=== PATIENT | male | born 1990 | race Caucasian/White ===

== ENCOUNTER 2016-11-11 08:09 | Emergency (ER) | payer OTHER ==
[~2016-11-11] VITALS: Ht 182.9 cm; Wt 73.0 kg
[~2016-11-11 08:09] MED LIST: AVILIFY PO; BUPR-43; FAMO-38; TRAM50TA3
[2016-11-11] MEDS ORDERED: MORPHINE SULFATE 4 MG/ML CPJ (NOT FOR IM USE) IV STA (09:04)
[2016-11-11] MEDS ORDERED: SODIUM CHLORIDE 0.9% 1,000 ML IV ONE (09:04)
[2016-11-11] MEDS ORDERED: TETANUS, DIPHTHERIA, PERTUSSIS VAC/PF 0.5ML (>7YR OLD) IM ONE (09:15)
[2016-11-11] MEDS ORDERED: BACITRACIN ZINC OINT UDPKT TOP ONE (09:15)
[2016-11-11 09:39] LABS: BASOPHILS % 0.4 % (0.0-2.0); EOSINOPHILS % 0.4 % (0.0-5.0); HEMATOCRIT. 45.1 % (42.0-52.0); HEMOGLOBIN. 15.5 g/dL (14.0-18.0); LYMPHOCYTES % 10.7 % (20.0-50.0); MEAN CORPUSCULAR HEMOGLOBIN 28.9 pg (28.0-32.0); MEAN CORPUSCULAR HGB CONC 34.4 g/dL (31.0-37.0); MEAN PLATELET VOLUME 9.4 fl (7.4-10.4); MONOCYTES % 8.8 % (2.0-8.0); NEUTROPHILS % 79.7 % (40.0-76.0); PLATELET 234 x1000/uL (130-400); RED BLOOD CELL COUNT 5.37 mill/uL (4.7-6.1); RED CELL DISTRIBUTION WIDTH 13.5 % (11.6-14.6); WHITE BLOOD COUNT 14.7 x1000/uL (4.5-11.0)
[2016-11-11 09:46] LABS: PROTHROMBIN TIME 10.9 sec
[2016-11-11 09:52] LABS: ALANINE AMINOTRANSFERASE 37 IU/L (13-61); ANION GAP 10; CALCIUM 8.8 mg/dL (8.5-10.1); CARBON DIOXIDE 30 mEq/L (21-32); CHLORIDE 105 mEq/L (98-107); ETHANOL BLOOD < 10 mg/dL; INDEX HEMOLYSI 1 (1-3); INDEX ICTERIC 1 (1-4); INDEX LIPEMIC 1 (1-3); UREA NITROGEN BLOOD 14 mg/dL (7-21); eGFR > 60 mL/min (>60)
[2016-11-11 10:00] VITALS: BP 102/67
== END 2016-11-11 12:52 | disposition home or self-care (01) ==
LOC: ER 08:50
DX: S00.03XA Contusion of scalp, initial encounter (principal); S70.02XA Contusion of left hip, initial encounter; S80.11XA Contusion of right lower leg, initial encounter; F12.10 Cannabis abuse, uncomplicated; V09.9XXA Pedestrian injured in unspecified transport accident, initial encounter; Y93.01 Activity, walking, marching and hiking; Y99.8 Other external cause status; Y92.410 Unspecified street and highway as the place of occurrence of the external cause
CPT/HCPCS: 36415; 70450; 71260; 72125; 73590; 74177; 80053; 85025; 85610; 86850; 86900; 86901; 90471; 90715; 96361; 96374; 99285; G0482; J2270; J7030; Z7610

== ENCOUNTER 2016-12-10 19:44 | Emergency (ER) | payer OTHER | END 2016-12-10 20:27 | disposition left against medical advice (07) | LOC: ER 19:44 | DX: Z53.21 Procedure and treatment not carried out due to patient leaving prior to being seen by health care provider (principal) ==

== ENCOUNTER 2019-02-28 09:26 | Emergency (ER) | payer MEDICARE, MEDICAID ==
[~2019-02-28] VITALS: Ht 188 cm; Wt 77.0 kg
[2019-02-28 10:47] VITALS: BP 118/75
== END 2019-02-28 10:47 | disposition home or self-care (01) ==
LOC: ER 09:26
DX: Z48.02 Encounter for removal of sutures (principal)
CPT/HCPCS: 99281

== ENCOUNTER 2019-06-14 18:31 | Emergency (ER) | payer MEDICARE, MEDICAID ==
[~2019-06-14] VITALS: Ht 182.9 cm; Wt 78.0 kg
[2019-06-14 19:30] VITALS: BP 141/62
== END 2019-06-14 19:58 | disposition home or self-care (01) ==
LOC: ER 18:31
DX: F98.9 Unspecified behavioral and emotional disorders with onset usually occurring in childhood and adolescence (principal); F41.9 Anxiety disorder, unspecified; F12.10 Cannabis abuse, uncomplicated; Z79.899 Other long term (current) drug therapy
CPT/HCPCS: 99283; 99284

== ENCOUNTER 2019-07-27 12:02 | Emergency (ER) | payer MEDICARE, MEDICAID ==
[~2019-07-27] VITALS: Ht 175.3 cm; Wt 60.0 kg
[2019-07-27 14:34] VITALS: BP 120/72
== END 2019-07-27 14:35 | disposition home or self-care (01) ==
LOC: ER 12:02
DX: S62.114A Nondisplaced fracture of triquetrum [cuneiform] bone, right wrist, initial encounter for closed fracture (principal); S60.511A Abrasion of right hand, initial encounter; L03.113 Cellulitis of right upper limb; F12.10 Cannabis abuse, uncomplicated; F17.210 Nicotine dependence, cigarettes, uncomplicated; Y04.0XXA Assault by unarmed brawl or fight, initial encounter; W22.09XA Striking against other stationary object, initial encounter; Y93.89 Activity, other specified; Y92.89 Other specified places as the place of occurrence of the external cause
CPT/HCPCS: 29125; 73130; 99283

== ENCOUNTER 2019-08-22 07:25 | Emergency (ER) | payer MEDICARE, MEDICAID ==
[~2019-08-22] VITALS: Ht 177.8 cm; Wt 70.0 kg
[2019-08-22 07:37] VITALS: BP 169/87
== END 2019-08-22 11:00 | disposition home or self-care (01) ==
LOC: ER 07:25
DX: Z48.00 Encounter for change or removal of nonsurgical wound dressing (principal)
CPT/HCPCS: 99281

== ENCOUNTER 2019-08-24 08:26 | Emergency (ER) | payer MEDICARE, MEDICAID ==
[~2019-08-24] VITALS: Ht 188 cm; Wt 84.0 kg
[2019-08-24 08:35] VITALS: BP 124/75
== END 2019-08-24 09:14 | disposition home or self-care (01) ==
LOC: ER 08:26
DX: Z48.00 Encounter for change or removal of nonsurgical wound dressing (principal)
CPT/HCPCS: 99283

== ENCOUNTER 2019-08-30 07:19 | Emergency (ER) | payer MEDICARE, MEDICAID ==
[~2019-08-30] VITALS: Ht 188 cm; Wt 68.0 kg
[2019-08-30 07:55] VITALS: BP 121/78
== END 2019-08-30 08:43 | disposition home or self-care (01) ==
LOC: ER 07:19
DX: Z48.00 Encounter for change or removal of nonsurgical wound dressing (principal); F32.9 Major depressive disorder, single episode, unspecified; F41.9 Anxiety disorder, unspecified; F12.10 Cannabis abuse, uncomplicated
CPT/HCPCS: 99281

== ENCOUNTER 2019-10-22 19:17 | Emergency (ER) | payer MEDICARE, MEDICAID ==
[~2019-10-22] VITALS: Ht 182.9 cm; Wt 82.0 kg
[2019-10-22 19:26] VITALS: BP 143/90
== END 2019-10-22 20:15 | disposition left against medical advice (07) ==
LOC: ER 19:17
DX: F10.10 Alcohol abuse, uncomplicated (principal); F12.10 Cannabis abuse, uncomplicated; Y90.9 Presence of alcohol in blood, level not specified
CPT/HCPCS: 99283

== ENCOUNTER 2019-12-23 23:41 | Emergency (ER) | payer MEDICARE, OTHER ==
[~2019-12-23] VITALS: Ht 180.3 cm; Wt 84.0 kg
[2019-12-23 23:58] VITALS: BP 124/79
== END 2019-12-24 01:02 | disposition home or self-care (01) ==
LOC: ER 23:41
DX: F10.229 Alcohol dependence with intoxication, unspecified (principal); F91.8 Other conduct disorders; F12.10 Cannabis abuse, uncomplicated; Y90.9 Presence of alcohol in blood, level not specified
CPT/HCPCS: 99281; 99283

== ENCOUNTER 2020-06-15 15:19 | Emergency (ER) | payer MEDICARE, OTHER ==
[~2020-06-15] VITALS: Ht 177.8 cm; Wt 80.0 kg
[2020-06-15 15:30] VITALS: BP 135/85
[2020-06-15 19:10] LABS: BASOPHILS % 0.7 % (0.0-2.0); EOSINOPHILS % 0.7 % (0.0-5.0); HEMATOCRIT. 53.2 % (42.0-52.0); HEMOGLOBIN. 18.3 g/dL (14.0-18.0); LYMPHOCYTES % 21.5 % (20.0-50.0); MEAN CORPUSCULAR HEMOGLOBIN 30.4 pg (28.0-32.0); MEAN CORPUSCULAR VOLUME 88.4 fL (80.0-94.0); MONOCYTES % 5.5 % (2.0-8.0); NEUTROPHILS % 71.6 % (40.0-76.0); PLATELET 269 x1000/uL (130-400); RED BLOOD CELL COUNT 6.02 mill/uL (4.7-6.1); RED CELL DISTRIBUTION WIDTH 14.3 % (11.6-14.6)
[2020-06-15 19:24] LABS: CHLORIDE 105 mEq/L (98-107)
[2020-06-15 19:36] LABS: ETHANOL BLOOD 111 mg/dL
[2020-06-15 20:14] LABS: CLARITY URINE CLEAR (CLEAR); COLOR URINE DARK YELLOW (YELLOW); KETONES URINE NEGATIVE (NEGATIVE); LEUKOCYTE ESTERASE URINE 2+ (NEGATIVE); NITRITE URINE NEGATIVE (NEGATIVE); OCCULT BLOOD URINE NEGATIVE (NEGATIVE); PH URINE 7.5 (4.5-8.0); PROTEIN URINE TRACE (NEGATIVE); SPECIFIC GRAVITY URINE 1.022 (1.005-1.030)
[2020-06-15 20:30] LABS: *AMPHETAMINES SCREEN URINE NEGATIVE (NEGATIVE); *BARBITURATES SCREEN URINE NEGATIVE (NEGATIVE); *BENZODIAZEPINES SCREEN URINE NEGATIVE (NEGATIVE)
[2020-06-15 20:31] LABS: CANNABINOID URINE SCREEN PRESUMTIVE POSITIVE (NEGATIVE); METHADONE URINE SCREEN NEGATIVE (NEGATIVE); OPIATES URINE SCREEN NEGATIVE (NEGATIVE); PHENCYCLIDINE URINE SCREEN NEGATIVE (NEGATIVE)
[2020-06-15 20:40] LABS: *COCAINE SCREEN URINE NEGATIVE (NEGATIVE)
== END 2020-06-15 22:13 | disposition home or self-care (01) ==
LOC: ER 15:28
DX: R45.1 Restlessness and agitation (principal); F17.200 Nicotine dependence, unspecified, uncomplicated; F12.10 Cannabis abuse, uncomplicated
CPT/HCPCS: 36415; 71045; 80053; 80305; 80307; 80320; 81003; 83880; 84484; 85025; 99284; G0480

== ENCOUNTER 2020-08-13 03:10 | Emergency (ER) | payer MEDICARE, MEDICAID ==
[~2020-08-13] VITALS: Ht 182.9 cm; Wt 73.0 kg
[~2020-08-13 03:10] MED LIST changes: -BUPR-43; +[UNRECOGNIZED DRUG - CODE]
[2020-08-13 03:23] VITALS: BP 130/70
[2020-08-13] MEDS ORDERED: SODIUM CHLORIDE 0.9% 1,000 ML IV ONE (04:00)
[2020-08-13 05:05] LABS: BASOPHILS % 0.8 % (0.0-2.0); EOSINOPHILS % 1.6 % (0.0-5.0); HEMATOCRIT. 51.5 % (42.0-52.0); HEMOGLOBIN. 17.4 g/dL (14.0-18.0); LYMPHOCYTES % 30.7 % (20.0-50.0); MEAN CORPUSCULAR HEMOGLOBIN 30.5 pg (28.0-32.0); MEAN CORPUSCULAR VOLUME 90.4 fL (80.0-94.0); MEAN PLATELET VOLUME 9.3 fl (7.4-10.4); MONOCYTES % 6.3 % (2.0-8.0); NEUTROPHILS % 60.6 % (40.0-76.0); PLATELET 276 x1000/uL (130-400); RED CELL DISTRIBUTION WIDTH 13.3 % (11.6-14.6)
[2020-08-13 05:09] LABS: CHLORIDE 109 mEq/L (98-107)
[2020-08-13 05:13] LABS: *AMPHETAMINES SCREEN URINE NEGATIVE (NEGATIVE); *BARBITURATES SCREEN URINE NEGATIVE (NEGATIVE); *BENZODIAZEPINES SCREEN URINE NEGATIVE (NEGATIVE); *COCAINE SCREEN URINE NEGATIVE (NEGATIVE); METHADONE URINE SCREEN NEGATIVE (NEGATIVE); OPIATES URINE SCREEN NEGATIVE (NEGATIVE)
[2020-08-13 05:13] LABS: ETHANOL BLOOD 220 mg/dL
[2020-08-13 05:14] LABS: CANNABINOID URINE SCREEN PRESUMTIVE POSITIVE (NEGATIVE); PHENCYCLIDINE URINE SCREEN NEGATIVE (NEGATIVE)
== END 2020-08-13 06:49 | disposition home or self-care (01) ==
LOC: ER 03:10
DX: F10.229 Alcohol dependence with intoxication, unspecified (principal); Y90.7 Blood alcohol level of 200-239 mg/100 ml; R03.0 Elevated blood-pressure reading, without diagnosis of hypertension; F12.90 Cannabis use, unspecified, uncomplicated; S00.511A Abrasion of lip, initial encounter; S60.519A Abrasion of unspecified hand, initial encounter; Y04.0XXA Assault by unarmed brawl or fight, initial encounter; Y93.89 Activity, other specified; Y92.480 Sidewalk as the place of occurrence of the external cause
CPT/HCPCS: 36415; 80048; 80305; 80320; 85025; 99283; J7030; G0480

== ENCOUNTER 2021-09-26 23:12 | Emergency (ER) | payer MEDICARE, MEDICAID ==
[~2021-09-26] VITALS: Ht 185.4 cm; Wt 77.0 kg
[~2021-09-26 23:12] MED LIST changes: +BUPR-46; -[UNRECOGNIZED DRUG - CODE]
[2021-09-26] MEDS ORDERED: TETANUS, DIPHTHERIA, PERTUSSIS VAC/PF 0.5ML (>10YR OLD) IM ONE (23:45)
[2021-09-27] MEDS ORDERED: LIDOCAINE HCL/PF 1% 10 MG/ML 5ML VIAL INFIL ONE (00:15)
[2021-09-27] MEDS ORDERED: LIDOCAINE HCL 1% 20ML VIAL (Pyxis) INJ INFIL SCH (00:30)
[2021-09-27] MEDS ORDERED: MORPHINE SULFATE 4 MG/ML CPJ (NOT FOR IM USE) IV ONE (01:15)
[2021-09-27] MEDS ORDERED: ONDANSETRON HCL 4MG/2ML INJ IV ONE (01:15)
[2021-09-27 07:00] VITALS: BP 110/80
== END 2021-09-27 07:10 | disposition home or self-care (01) ==
LOC: ER 23:12
DX: S61.411A Laceration without foreign body of right hand, initial encounter (principal); S00.31XA Abrasion of nose, initial encounter; F12.10 Cannabis abuse, uncomplicated; R51.9 Headache, unspecified; Y08.89XA Assault by other specified means, initial encounter; Y93.89 Activity, other specified; Y92.89 Other specified places as the place of occurrence of the external cause; Y99.8 Other external cause status; F10.229 Alcohol dependence with intoxication, unspecified; Y90.0 Blood alcohol level of less than 20 mg/100 ml
CPT/HCPCS: 12002; 36415; 70450; 73130; 86850; 86900; 86901; 86920; 90471; 90715; 96374; 96375; 99291; J2270; J2405; J3490; 99285; P9016

== ENCOUNTER 2021-10-04 13:24 | Emergency (ER) | payer MEDICARE, MEDICAID ==
[~2021-10-04] VITALS: Ht 182.9 cm; Wt 77.0 kg
[2021-10-04] MEDS ORDERED: CEPH500C2 MT (15:39)
[2021-10-04] MEDS ORDERED: CEPHALEXIN 250MG CAPSULE PO ONE (15:45)
[2021-10-04] MEDS ORDERED: BACITRACIN ZINC OINT UDPKT TOP ONE (15:45)
[2021-10-04 16:09] VITALS: BP 119/77
== END 2021-10-04 16:11 | disposition home or self-care (01) ==
LOC: ER 13:24
DX: S61.411D Laceration without foreign body of right hand, subsequent encounter (principal); Z13.9 Encounter for screening, unspecified; X58.XXXD Exposure to other specified factors, subsequent encounter
CPT/HCPCS: 99282

== ENCOUNTER 2021-10-10 14:47 | Emergency (ER) | payer MEDICARE, MEDICAID ==
[~2021-10-10] VITALS: Ht 188 cm; Wt 77.0 kg
[~2021-10-10 14:47] MED LIST changes: +CEPH500C2 MT
[2021-10-10 15:18] VITALS: BP 117/72
[2021-10-10] MEDS ORDERED: CEPH500C2 MT (16:32)
== END 2021-10-10 16:51 | disposition home or self-care (01) ==
LOC: ER 15:00
DX: T81.30XA Disruption of wound, unspecified, initial encounter (principal); Z48.02 Encounter for removal of sutures; R94.31 Abnormal electrocardiogram [ECG] [EKG]; F12.10 Cannabis abuse, uncomplicated; Z86.19 Personal history of other infectious and parasitic diseases; F10.21 Alcohol dependence, in remission; Y83.8 Other surgical procedures as the cause of abnormal reaction of the patient, or of later complication, without mention of misadventure at the time of the procedure; Y92.018 Other place in single-family (private) house as the place of occurrence of the external cause
CPT/HCPCS: 93005; 99283

== ENCOUNTER 2021-10-14 15:16 | Emergency (ER) | payer MEDICARE, MEDICAID ==
[~2021-10-14] VITALS: Ht 188 cm; Wt 77.0 kg
[2021-10-14 15:21] VITALS: BP 132/76
== END 2021-10-14 15:56 | disposition home or self-care (01) ==
LOC: ER 15:16
DX: Z48.00 Encounter for change or removal of nonsurgical wound dressing (principal); Z48.02 Encounter for removal of sutures
CPT/HCPCS: 99281

== ENCOUNTER 2021-10-18 11:26 | Emergency (ER) | payer MEDICARE, MEDICAID ==
[~2021-10-18] VITALS: Ht 188 cm; Wt 77.0 kg
[2021-10-18 11:30] VITALS: BP 121/89
== END 2021-10-18 11:44 | disposition home or self-care (01) ==
LOC: ER 11:26
DX: Z48.02 Encounter for removal of sutures (principal); F12.10 Cannabis abuse, uncomplicated; Z98.890 Other specified postprocedural states
CPT/HCPCS: 99281

== ENCOUNTER 2022-05-06 16:02 | Emergency (ER) | payer MEDICARE, MEDICAID ==
[~2022-05-06] VITALS: Ht 167.6 cm; Wt 76.0 kg
[2022-05-06 16:09] VITALS: BP 149/86
== END 2022-05-06 16:51 | disposition left against medical advice (07) ==
LOC: ER 16:02
DX: Z53.21 Procedure and treatment not carried out due to patient leaving prior to being seen by health care provider (principal)

== ENCOUNTER 2022-11-01 15:59 | Emergency (ER) | payer MEDICARE, MEDICAID ==
[~2022-11-01] VITALS: Ht 182.9 cm; Wt 80.0 kg
[2022-11-01 16:03] VITALS: BP 151/84
== END 2022-11-01 16:15 | disposition left against medical advice (07) ==
LOC: ER 15:59
DX: Z53.21 Procedure and treatment not carried out due to patient leaving prior to being seen by health care provider (principal)
CPT/HCPCS: 99281

== ENCOUNTER 2023-08-14 13:05 | Emergency (ER) | payer MEDICARE, MEDICAID ==
[~2023-08-14] VITALS: Ht 185.4 cm; Wt 60.0 kg
[2023-08-14 13:15] VITALS: BP 120/94; PULSE 94; RESP 16; TEMP 98.6; O2SAT 97
== END 2023-08-14 16:26 | disposition left against medical advice (07) ==
LOC: ER 13:05
DX: R11.2 Nausea with vomiting, unspecified (principal); F12.10 Cannabis abuse, uncomplicated; I49.9 Cardiac arrhythmia, unspecified; Z98.890 Other specified postprocedural states; Z00.00 Encounter for general adult medical examination without abnormal findings
CPT/HCPCS: 71045; 93005; 99283

== ENCOUNTER 2023-09-19 14:53 | Emergency (ER) | payer MEDICARE, MEDICAID ==
[~2023-09-19] VITALS: Ht 172.7 cm; Wt 75.0 kg
[2023-09-19 19:05] VITALS: BP 154/98; PULSE 127; RESP 19; TEMP 98.4; O2SAT 97
== END 2023-09-19 20:15 | disposition left against medical advice (07) ==
LOC: ER 14:53
DX: R46.2 Strange and inexplicable behavior (principal); J45.909 Unspecified asthma, uncomplicated; Z79.899 Other long term (current) drug therapy
CPT/HCPCS: 99291

== ENCOUNTER 2024-07-02 08:23 | Emergency (ER) | payer MEDICARE, MEDICAID ==
[~2024-07-02] VITALS: Ht 188 cm; Wt 99.7 kg
[2024-07-02 08:28] VITALS: BP 137/109; TEMP 98.7; O2SAT 95
[2024-07-02 08:35] VITALS: PULSE 88; RESP 18; O2SAT 99
== END 2024-07-02 12:57 | disposition left against medical advice (07) ==
LOC: ER 08:39
DX: J06.9 Acute upper respiratory infection, unspecified (principal); B97.89 Other viral agents as the cause of diseases classified elsewhere; J45.909 Unspecified asthma, uncomplicated; Z20.822 Contact with and (suspected) exposure to COVID-19
CPT/HCPCS: 87426; 87804; 99282

== ENCOUNTER 2025-03-12 22:24 | Emergency (ER) | payer MEDICARE, MEDICAID ==
[~2025-03-12] VITALS: Ht 175.3 cm; Wt 84.0 kg
[2025-03-12] MEDS ORDERED: LIDOCAINE HCL/EPINEPHRINE 1%-EPI 1:100,000 10ML VIAL INFIL ONE (22:45)
[2025-03-12] MEDS: LORAZEPAM 2MG/ML UD SYRINGE IM NR (23:13)
[2025-03-12] MEDS: DIPHENHYDRAMINE 50MG/ML VIAL IM ONE (23:13)
[2025-03-12] MEDS: HALOPERIDOL LACTATE 5MG/ML VIAL IM ONE (23:13)
[2025-03-12 23:24] LABS: BASOPHILS % 0.6 % (0.0-2.0); EOSINOPHILS % 0.1 % (0.0-5.0); HEMATOCRIT. 51.4 % (42.0-52.0); HEMOGLOBIN. 17.3 g/dL (14.0-18.0); LYMPHOCYTES % 18.9 % (20.0-50.0); MEAN PLATELET VOLUME 9.4 fl (7.4-10.4); MONOCYTES % 13.5 % (2.0-8.0); NEUTROPHILS % 66.9 % (40.0-76.0); PLATELET 314 x1000/uL (130-400); RED BLOOD CELL COUNT 5.88 mill/uL (4.7-6.1); RED CELL DISTRIBUTION WIDTH 13.4 % (11.6-14.6)
[2025-03-12 23:30] LABS: CLARITY URINE CLEAR (CLEAR); COLOR URINE DARK YELLOW (YELLOW); GLUCOSE URINE NEGATIVE (NEGATIVE); KETONES URINE 1+ (NEGATIVE); LEUKOCYTE ESTERASE URINE TRACE (NEGATIVE); NITRITE URINE NEGATIVE (NEGATIVE); OCCULT BLOOD URINE TRACE (NEGATIVE); PH URINE 5.5 (4.5-8.0); PROTEIN URINE 1+ (NEGATIVE); SPECIFIC GRAVITY URINE 1.033 (1.005-1.030); UROBILINOGEN URINE 1.0 E.U./dL (0.2-1.0)
[2025-03-12] MEDS: LIDOCAINE HCL/EPINEPHRINE 1%-EPI 1:100,000 20ML VIAL INFIL NR (23:30)
[2025-03-12] MEDS: TETANUS, DIPHTHERIA, PERTUSSIS VAC/PF 0.5ML (>10YR OLD) IM ONE (23:30)
[2025-03-12 23:47] LABS: CREATININE 1.7 mg/dL (0.6-1.3)
[2025-03-12 23:48] LABS: ETHANOL BLOOD 73 mg/dL (<10); UREA NITROGEN BLOOD 16 mg/dL (9-23)
[2025-03-12 23:49] LABS: ASPARTATE AMINOTRANSFERASE 36 IU/L (<34)
[2025-03-12 23:50] LABS: BILIRUBIN DIRECT 0.4 mg/dL (<=3.0); BILIRUBIN TOTAL 1.1 mg/dL (0.1-1.0); PROTEIN TOTAL 8.6 g/dL (6.0-8.3)
[2025-03-13 00:03] LABS: *AMPHETAMINES SCREEN URINE PRESUMPTIVE POSITIVE (NEGATIVE); *BENZODIAZEPINES SCREEN URINE NEGATIVE (NEGATIVE)
[2025-03-13 00:05] LABS: *BARBITURATES SCREEN URINE NEGATIVE (NEGATIVE); *COCAINE SCREEN URINE NEGATIVE (NEGATIVE); CANNABINOID URINE SCREEN PRESUMPTIVE POSITIVE (NEGATIVE); ECSTASY MDMA SCREEN URINE CONF.TEST INDICATED (NEGATIVE); METHADONE URINE SCREEN NEGATIVE (NEGATIVE); OPIATES URINE SCREEN NEGATIVE (NEGATIVE); PHENCYCLIDINE URINE SCREEN NEGATIVE (NEGATIVE)
[2025-03-13 02:23] LABS: WBC URINE 0-2 /hpf (0-2)
[2025-03-13 02:24] LABS: RBC URINE 0-2 /hpf (0-2)
[2025-03-13 02:26] LABS: SQUAMOUS EPITHELIAL CELL URINE NONE SEEN /lpf (RARE/1+)
[2025-03-13 02:27] LABS: BACTERIA URINE NONE SEEN; CALCIUM OXALATE CRYSTALS URINE 1+ /lpf
[2025-03-13] MEDS: LORAZEPAM 2MG/ML UD SYRINGE IM NR ×2 (02:48→13:47)
[2025-03-13 03:15] VITALS: O2SAT 96
[2025-03-13 09:18] LABS: PLATELET 272 x1000/uL (130-400); RED BLOOD CELL COUNT 5.90 mill/uL (4.7-6.1); RED CELL DISTRIBUTION WIDTH 14.1 % (11.6-14.6)
[2025-03-13] MEDS: OLANZAPINE 5MG TABLET ODT PO SCH ×2 (13:47→19:54)
[2025-03-14 13:42] VITALS: BP 125/90; PULSE 102; RESP 16; TEMP 36.7; O2SAT 99
== END 2025-03-14 14:04 ==
LOC: ER 22:24
DX: S91.012A Laceration without foreign body, left ankle, initial encounter (principal); J45.909 Unspecified asthma, uncomplicated; R45.851 Suicidal ideations; R45.1 Restlessness and agitation; N17.9 Acute kidney failure, unspecified; F11.90 Opioid use, unspecified, uncomplicated; F10.129 Alcohol abuse with intoxication, unspecified; Z59.00 Homelessness unspecified; Z78.1 Physical restraint status; Z79.899 Other long term (current) drug therapy; Z20.822 Contact with and (suspected) exposure to COVID-19; X78.8XXA Intentional self-harm by other sharp object, initial encounter; Y93.89 Activity, other specified; Y92.89 Other specified places as the place of occurrence of the external cause; Y99.8 Other external cause status; Y90.3 Blood alcohol level of 60-79 mg/100 ml
CPT/HCPCS: 80076; 80305; 80048; 81003; 80307; 80329; 80320; 83735; 85027; 85025; 36415; 90715; 93005; 12005; 90471; 96372 ×2; 99291; 87426; 71045; J1200; J1630; J2004; J2060 ×2; G0480

== ENCOUNTER 2025-04-14 23:57 | Emergency (ER) | payer MEDICARE, MEDICAID ==
[~2025-04-14] VITALS: Ht 177.8 cm; Wt 82.0 kg
[2025-04-15 00:20] VITALS: O2SAT 99
[2025-04-15 00:56] LABS: BASOPHILS % 0.7 % (0.0-2.0); EOSINOPHILS % 1.4 % (0.0-5.0); HEMATOCRIT. 47.1 % (42.0-52.0); HEMOGLOBIN. 16.2 g/dL (14.0-18.0); LYMPHOCYTES % 34.0 % (20.0-50.0); MEAN PLATELET VOLUME 9.4 fl (7.4-10.4); MONOCYTES % 9.1 % (2.0-8.0); NEUTROPHILS % 54.8 % (40.0-76.0); PLATELET 243 x1000/uL (130-400); RED BLOOD CELL COUNT 5.39 mill/uL (4.7-6.1); RED CELL DISTRIBUTION WIDTH 13.6 % (11.6-14.6)
[2025-04-15 01:12] LABS: CREATININE 1.0 mg/dL (0.6-1.3); UREA NITROGEN BLOOD 10 mg/dL (9-23)
[2025-04-15 01:14] LABS: ASPARTATE AMINOTRANSFERASE 22 IU/L (<34); BILIRUBIN DIRECT < 0.1 mg/dL (<=3.0); BILIRUBIN TOTAL 0.3 mg/dL (0.1-1.0); PROTEIN TOTAL 7.3 g/dL (6.0-8.3)
[2025-04-15 02:25] LABS: *AMPHETAMINES SCREEN URINE NEGATIVE (NEGATIVE); *BARBITURATES SCREEN URINE NEGATIVE (NEGATIVE); *BENZODIAZEPINES SCREEN URINE NEGATIVE (NEGATIVE); *COCAINE SCREEN URINE NEGATIVE (NEGATIVE); CANNABINOID URINE SCREEN PRESUMPTIVE POSITIVE (NEGATIVE); ECSTASY MDMA SCREEN URINE NEGATIVE (NEGATIVE); METHADONE URINE SCREEN NEGATIVE (NEGATIVE); OPIATES URINE SCREEN NEGATIVE (NEGATIVE); PHENCYCLIDINE URINE SCREEN NEGATIVE (NEGATIVE)
[2025-04-15 11:12] VITALS: BP 135/87; PULSE 73; RESP 12; TEMP 36.7; O2SAT 99
== END 2025-04-15 11:20 | disposition short-term general hospital (02) ==
LOC: ER 23:57
DX: S60.812A Abrasion of left wrist, initial encounter (principal); R45.851 Suicidal ideations; J45.909 Unspecified asthma, uncomplicated; F31.9 Bipolar disorder, unspecified; R07.9 Chest pain, unspecified; Z20.822 Contact with and (suspected) exposure to COVID-19; Z79.899 Other long term (current) drug therapy; X78.9XXA Intentional self-harm by unspecified sharp object, initial encounter; Y93.89 Activity, other specified; Y92.89 Other specified places as the place of occurrence of the external cause; Y99.8 Other external cause status
CPT/HCPCS: 36415; 80048; 80076; 80305; 80307; 80320; 80329; 85025; 87426; 93005; 99285; G0480